=== PATIENT | female | born 2000 | race Two or more races ===

== ENCOUNTER 2022-09-15 10:17 | Inpatient (IN) | payer OTHER ==
[~2022-09-15] VITALS: Ht 157.5 cm; Wt 88.9 kg
[2022-09-15] MEDS ORDERED: PRENATAL + DHA1 EAC1 PO (11:45)
[2022-09-16] MEDS ORDERED: CEFUROXIME250 MG PO (09:18)
== END 2022-09-16 11:05 | disposition home or self-care (01) | DRG 833 ==
LOC: LDR 10:17 → OB/GYN 09-16 09:23 → LDR 09-16 09:25
PROVIDERS: ADMIT Obstetrics & Gynecology; ATTEND Obstetrics & Gynecology
PROC: BU4CZZZ Ultrasonography of Uterus and Ovaries (ICD-10-PCS; principal; 2022-09-15)
PROC: 4A1HXCZ Monitoring of Products of Conception, Cardiac Rate, External Approach (ICD-10-PCS; 2022-09-15)
PROC: BY4CZZZ Ultrasonography of Second Trimester, Single Fetus (ICD-10-PCS; 2022-09-15)
PROC: BT43ZZZ Ultrasonography of Bilateral Kidneys (ICD-10-PCS; 2022-09-15)
DX: O26.892 Other specified pregnancy related conditions, second trimester (principal); R10.84 Generalized abdominal pain; Z3A.24 24 weeks gestation of pregnancy; Z20.822 Contact with and (suspected) exposure to COVID-19

== ENCOUNTER 2024-05-15 17:53 | Emergency (ER) | payer OTHER ==
[~2024-05-15] VITALS: Ht 157.5 cm; Wt 83.9 kg
[~2024-05-15 17:53] MED LIST: CEFUROXIME250 MG PO; PRENATAL + DHA1 EAC1 PO
[2024-05-15 20:29] LABS: HEMATOCRIT 35.5 % (36.0-45.00); HEMOGLOBIN 11.9 g/dL (12.0-15.00); MEAN CELL VOLUME 88.2 fL (80.00-100.00); MEAN CORPUSCULAR HEMOGLOBIN 29.5 pg (27.00-32.0); MEAN CORPUSCULAR HGB CONC 33.4 g/dl (32.0-36.0); PLATELET COUNT 267 K/uL (150-450); RED BLOOD COUNT 4.02 M/uL (4.00-6.00); RED CELL DISTRIBUTION WIDTH 13.5 % (11.5-14.5)
== END 2024-05-15 21:41 | disposition home or self-care (01) ==
LOC: ER 17:55
PROVIDERS: General Practice
DX: O20.9 Hemorrhage in early pregnancy, unspecified (principal); Z3A.01 Less than 8 weeks gestation of pregnancy

== ENCOUNTER → 2024-10-23 10:12 | Outpatient (CLI) | payer OTHER ==
[~2024-10-23 10:12] MED LIST changes: +CEPHALEXIN500 MG PO; +COLACE100 MG PO; +IBU800 MG PO; +IRON325 MG PO; +KETO10TA2 PO; +PERCOCET 5-3251 EACH PO; +PRENATAL CAPLE1 EAC1 PO; +PRENATAL TABLE1 EAC1 PO; +SIMETHICONE80 MG PO; +VAZALORE81 MG PO
== END | disposition home or self-care (01) ==
LOC: PRENATAL 10:12
PROVIDERS: ATTEND Obstetrics & Gynecology Maternal & Fetal Medicine
DX: O44.00 Complete placenta previa NOS or without hemorrhage, unspecified trimester (principal); O34.219 Maternal care for unspecified type scar from previous cesarean delivery; Z3A.22 22 weeks gestation of pregnancy

== ENCOUNTER → 2024-11-28 11:37 | Outpatient (CLI) | payer OTHER | END | disposition home or self-care (01) | LOC: PRENATAL 11:37 | PROVIDERS: ATTEND Obstetrics & Gynecology Maternal & Fetal Medicine | DX: O26.849 Uterine size-date discrepancy, unspecified trimester (principal); O36.8199 Decreased fetal movements, unspecified trimester, other fetus; O34.219 Maternal care for unspecified type scar from previous cesarean delivery; O99.019 Anemia complicating pregnancy, unspecified trimester; Z3A.28 28 weeks gestation of pregnancy ==